=== PATIENT | male | born 1950 | race Caucasian/White ===

== ENCOUNTER 2021-01-19 09:23 | Observation (INO) ==
[2021-01-19 10:10] LABS: Hematocrit 23.4 % (37.5-50.1); Hemoglobin 7.9 g/dL (12.9-16.9); Mean Corpuscular HGB Conc 33.8 g/dL (31.6-35.5); Mean Corpuscular Hemoglobin 32.4 pg (28.0-33.3); Mean Corpuscular Volume 95.9 fL (83.0-100.0); Mean Platelet Volume 11.1 fL (9.4-12.4); Platelet Count 160 K/mcL (140-400); Red Blood Count 2.44 M/mcL (4.19-5.50); Red Cell Distribution Width 17.7 % (11.5-14.5); White Blood Count 4.2 K/mcL (4.3-11.1)
[2021-01-19 10:21] LABS: Activated Partial Thrombo Time 24.6 Seconds (26.0-36.0)
[2021-01-19 10:32] LABS: Alanine Aminotransferase 12 Units/L (7-52); Albumin 4.1 g/dL (3.5-5.7); Albumin/Globulin Ratio 1.4 (1.1-2.2); Alkaline Phosphatase 77 Units/L (34-104); Aspartate Amino Transferase 22 Units/L (13-39); BUN/Creatinine Ratio 17 (6-26); Bilirubin,Total 0.4 mg/dL (0.3-1.0); Blood Urea Nitrogen 18 mg/dL (8-23); Calcium 9.3 mg/dL (8.6-10.3); Carbon Dioxide 22 mEq/L (23-29); Chloride 100 mEq/L (98-107); Glucose 123 mg/dL (70-105); Lipase 53 Units/L (11-82); Osmolality,Calculated 275 (280-300); Potassium 4.3 mEq/L (3.5-5.1); Sodium 131 mEq/L (136-145); Total Protein 7.1 g/dL (6.4-8.9); Troponin I < 0.03 ng/mL (< 0.04); eGFR For African Americans > 60 (> 60); eGFR For Non-African Americans > 60 (> 60)
[2021-01-19 10:47] LABS: Eosinophils # 0.1 K/mcL (0.0-0.6); Lymphocytes # 0.8 K/mcL (0.6-4.6); Monocytes # 0.4 K/mcL (0.0-1.3); Neutrophils # 2.9 K/mcL (1.6-8.9); Platelet Estimate Normal (Normal)
[2021-01-19 10:48] LABS: Anisocytosis 1+ (Not Present)
[2021-01-19] MEDS ORDERED: Pantoprazole 40 MG VIAL IVP ONE (11:25)
[2021-01-19] MEDS ORDERED: Ondansetron 4 MG/2 ML VIAL IVP PRN (12:19)
[2021-01-19] MEDS ORDERED: Naloxone 0.4 MG/ML INJ IVP PRN (12:19)
[2021-01-19] MEDS ORDERED: Isovue-370 500 ML BOTTLE IVP ONE (12:28)
[2021-01-19 12:39] LABS: Magnesium 1.8 mg/dL (1.6-2.6)
[2021-01-19] MEDS ORDERED: 0.9 % Sodium Chloride 1,000 ML IVC SCH (12:45)
[2021-01-19] MEDS ORDERED: 0.9 % Sodium Chloride 250 ML ONE ×2 (16:09→20:14)
[2021-01-19] MEDS ORDERED: Pantoprazole 40 MG VIAL IVP SCH (18:00)
[2021-01-19] MEDS ORDERED: Acetaminophen 325 MG TABLET PO PRN (19:19)
[2021-01-19] MEDS ORDERED: QUEtiapine Fumarate 25 MG TABLET PO PRN (21:00)
[2021-01-19] MEDS ORDERED: Budesonide/Formoterol 80/4.5 1 PUFF INH IH SCH (21:00)
[2021-01-19] MEDS ORDERED: Melatonin 3 MG TABLET PO SCH (21:00)
[2021-01-19 23:33] VITALS: BP 198/90
[2021-01-20] MEDS ORDERED: DilTIAZem CD (24hr) 180 MG CAP.ER.24H PO SCH (09:00)
[2021-01-20] MEDS ORDERED: Aspirin 81 MG TAB.CHEW PO SCH (09:00)
== END 2021-01-20 00:48 | disposition left against medical advice (07) ==
LOC: EMEROOARM 09:23 → 3ANU 09:23
PROVIDERS: ADMIT General Practice; ATTEND General Practice

== ENCOUNTER 2021-06-09 10:29 | Inpatient (IN) ==
[2021-06-09] MEDS ORDERED: Lidocaine HCL 4 ML Topical Solution (Laryng-O-Jet Kit Sterile Pak) TP ONE (10:50)
[2021-06-09] MEDS ORDERED: CeFAZolin Syr 2,000MG/20 ML 2,000 MG/20 ML SYRINGE IVPB ONE (10:50)
[2021-06-09] MEDS ORDERED: Lidocaine -MPF 2% 2 ML VIAL ONE ×2 (10:51→10:55)
[2021-06-09] MEDS ORDERED: *HR* Propofol 200 MG/20 ML VIAL IVP ONE (10:51)
[2021-06-09] MEDS ORDERED: *HR* Rocuronium Bromide 50 MG/5 ML VIAL ONE (10:51)
[2021-06-09] MEDS ORDERED: *HR* Remifentanil 1 MG VIAL IVP ONE (10:52)
[2021-06-09] MEDS ORDERED: *HR* FentaNYL (PF) 100 MCG/2 ML VIAL ONE ×2 (10:52→16:31)
[2021-06-09] MEDS ORDERED: Ringers Solution, Lactated 1,000 ML IVC SCH (11:00)
[2021-06-09] MEDS ORDERED: Protamine Sulfate 50 MG/5 ML VIAL IVP ONE (11:00)
[2021-06-09] MEDS ORDERED: Bupivacaine-MPF 0.25% 10 ML VIAL ONE (11:00)
[2021-06-09] MEDS ORDERED: Heparin 1,000 UNITS/500 mL 500 ML ONE ×2 (11:00)
[2021-06-09] MEDS ORDERED: *HR* Phenylephrine 10 MG/ML VIAL ONE (11:06)
[2021-06-09] MEDS ORDERED: niCARdipine 40 MG/200 ML MLS IVC ONE (11:16)
[2021-06-09] MEDS ORDERED: Vancomycin 1,000 MG, Sodium Chloride IRRigation 1,000 ML IR ONE (12:00)
[2021-06-09] MEDS ORDERED: Sugammadex Sodium 200 MG/2 ML VIAL IV ONE (13:15)
[2021-06-09] MEDS ORDERED: *HR* HYDROMORPHONE 2 MG/ML VIAL ONE (13:57)
[2021-06-09] MEDS ORDERED: *HR* Labetalol 20 MG/4 ML SYRINGE IVP PRN (14:30)
[2021-06-09] MEDS ORDERED: *HR* OxyCODONE Immed Rel 5 MG TABLET PO PRN ×2 (14:30→15:44)
[2021-06-09] MEDS ORDERED: Acetaminophen IV 1,000 MG/100 ML BAG IVPB ONE (14:30)
[2021-06-09] MEDS ORDERED: *HR* HYDROmorphone 2 MG TABLET PO PRN (14:30)
[2021-06-09] MEDS ORDERED: Famotidine 20 MG/2 ML VIAL IVP ONE (14:30)
[2021-06-09] MEDS: *HR* HYDROmorphone (PF) 1 MG/ML SYRINGE IVP PRN ×3 (14:38→14:58)
[2021-06-09] MEDS ORDERED: Acetaminophen 325 MG TABLET PO PRN (15:44)
[2021-06-09] MEDS ORDERED: Naloxone 0.4 MG/ML INJ IVP PRN (15:44)
[2021-06-09] MEDS ORDERED: QUEtiapine Fumarate 100 MG TABLET PO PRN (15:44)
[2021-06-09] MEDS ORDERED: 0.9 % Sodium Chloride 1,000 ML IVC SCH (15:44)
[2021-06-09] MEDS ORDERED: *HR* Magnesium Sulfate 1 GM/2 ML VIAL ONE (16:38)
[2021-06-09] MEDS: *HR* HYDROcodone/Acet 5/325 mg TABLET PO PRN (16:42)
[2021-06-09] MEDS: *HR* Metoprolol 5 MG/5 ML VIAL IVP SCH ×2 (16:43→23:48)
[2021-06-09] MEDS: *HR* Labetalol 20 MG/4 ML SYRINGE IVP PRN (19:03)
[2021-06-09] MEDS: Budesonide/Formoterol 160/4.5 1 PUFF INH IH SCH (20:16)
[2021-06-09] MEDS: CeFAZolin 2 GM/120 ML BAG IVPB SCH (20:53)
[2021-06-09] MEDS ORDERED: Melatonin 3 MG TABLET PO SCH (21:00)
[2021-06-10] MEDS: *HR* HYDROcodone/Acet 5/325 mg TABLET PO PRN ×2 (00:06→06:04)
[2021-06-10 04:33] VITALS: O2SAT 97
[2021-06-10] MEDS: CeFAZolin 2 GM/120 ML BAG IVPB SCH (05:18)
[2021-06-10] MEDS: *HR* Metoprolol 5 MG/5 ML VIAL IVP SCH (05:19)
[2021-06-10] MEDS ORDERED: *HR* Heparin 5,000 UNIT/ML VIAL SQ SCH ×2 (06:00)
[2021-06-10] MEDS: *HR* Labetalol 20 MG/4 ML SYRINGE IVP PRN (06:05)
[2021-06-10 07:24] VITALS: BP 162/69; PULSE 69; TEMP 98.6
[2021-06-10] MEDS: Budesonide/Formoterol 160/4.5 1 PUFF INH IH SCH (07:47)
[2021-06-10] MEDS ORDERED: Multivit/Ca/Min/Fe/FA 1 TAB TABLET PO SCH (09:00)
[2021-06-10] MEDS ORDERED: Aspirin 81 MG TAB.CHEW PO SCH (09:00)
[2021-06-10] MEDS ORDERED: DilTIAZem CD (24hr) 180 MG CAP.ER.24H PO SCH (09:00)
== END 2021-06-10 10:13 | disposition home or self-care (01) | DRG 39 ==
LOC: SAMDAY 10:29 → 2NNU 15:39
PROVIDERS: ADMIT Surgery; ATTEND Surgery